=== PATIENT | female | born 1995 | race Caucasian/White ===

== ENCOUNTER 2016-05-16 14:33 | Emergency (ER) | payer OTHER | END 2016-05-16 16:30 | disposition home or self-care (01) | LOC: ER1 14:33 | DX: N30.00 Acute cystitis without hematuria (principal); Z88.1 Allergy status to other antibiotic agents; Z88.8 Allergy status to other drugs, medicaments and biological substances | CPT/HCPCS: 36415; 81001; 84703; 87077; 87086; 87186; 99283 ==

== ENCOUNTER 2016-08-04 13:19 | Emergency (ER) | payer OTHER ==
[2016-08-04 14:46] LABS: HEMOGLOBIN 13.9 gm/dl (12.3-15.3); RED BLOOD COUNT 4.68 M/UL (4.00-5.10); WHITE BLOOD COUNT 6.6 K/UL (4.5-11.0)
[2016-08-04 15:09] LABS: BUN/CREATININE RATIO 23 (0-10)
== END 2016-08-04 16:35 | disposition home or self-care (01) ==
LOC: ER1 13:19
PROVIDERS: Physician Assistant
DX: R07.89 Other chest pain (principal); E03.9 Hypothyroidism, unspecified; D49.6 Neoplasm of unspecified behavior of brain; Z88.1 Allergy status to other antibiotic agents; Z88.8 Allergy status to other drugs, medicaments and biological substances; Z79.899 Other long term (current) drug therapy; Z98.2 Presence of cerebrospinal fluid drainage device
CPT/HCPCS: 36415; 71020; 80053; 82550; 82553; 83874; 84484; 84703; 85025; 85379; 93005; 99285

== ENCOUNTER 2020-10-12 08:51 | Emergency (ER) | payer OTHER ==
[~2020-10-12 08:51] MED LIST: BACTROBAN NASAL1 G1 TOP; CLEOCIN HCL300 MG PO
[2020-10-12] MEDS ORDERED: OMNICEF 300 MG300 MG PO (09:28)
[2020-10-15 22:09] LABS: CHLAMYDIA TRACHOMATIS, NAA Negative (Negative); NEISSERIA GONORRHOEAE, NAA Negative (Negative)
== END 2020-10-12 10:30 | disposition home or self-care (01) ==
LOC: ER1 08:51
PROVIDERS: Physician Assistant
DX: N39.0 Urinary tract infection, site not specified (principal); F17.290 Nicotine dependence, other tobacco product, uncomplicated; Z88.1 Allergy status to other antibiotic agents; Z88.8 Allergy status to other drugs, medicaments and biological substances
CPT/HCPCS: 81001; 84703; 87077; 87086; 87186; 96372; 99283; J0696

== ENCOUNTER → 2021-05-20 | Outpatient (CLI) | payer OTHER ==
[~2021-05-20] MED LIST changes: +OMNICEF 300 MG300 MG PO
== END ==
LOC: LAB 17:28
DX: Z32.00 Encounter for pregnancy test, result unknown (principal)
CPT/HCPCS: 84702